=== PATIENT | male | born 1940 | race Caucasian/White ===

== ENCOUNTER 2025-08-17 21:09 | Emergency (ER) | payer MEDICARE, OTHER ==
[~2025-08-17] VITALS: Ht 177.8 cm; Wt 77.0 kg
[2025-08-17 21:17] VITALS: TEMP 36.2
[2025-08-17] MEDS: ONDANSETRON HCL 4MG/2ML INJ IV ONE (22:11)
[2025-08-17] MEDS: MORPHINE SULFATE 4 MG/ML INJ (FOR IV/IM USE) IV ONE (22:12)
[2025-08-17] MEDS: SODIUM CHLORIDE 0.9% 1,000 ML IV ONE (22:12)
[2025-08-17] MEDS: FENTANYL CITRATE/PF 50MCG/ML 2ML VIAL IV ONE (22:32)
[2025-08-17] MEDS: PROPOFOL 200MG/20ML VIAL IV ONE (23:24)
[2025-08-17 23:25] VITALS: O2SAT 98
[2025-08-18 01:06] VITALS: BP 171/83; PULSE 78; RESP 12; O2SAT 100
== END 2025-08-18 01:25 | disposition home or self-care (01) ==
LOC: ER 21:09
DX: S43.015A Anterior dislocation of left humerus, initial encounter (principal); I10 Essential (primary) hypertension; E11.9 Type 2 diabetes mellitus without complications; W01.0XXA Fall on same level from slipping, tripping and stumbling without subsequent striking against object, initial encounter; Y93.89 Activity, other specified; Y92.89 Other specified places as the place of occurrence of the external cause; Y99.8 Other external cause status
CPT/HCPCS: 99285; 23650; 96374; 96375; 96361; 73030; 94664; 99152; 93005; J3010; J2405; J2704; J2270; J7030